=== PATIENT | female | born 1955 | race Caucasian/White ===

== ENCOUNTER → 2019-09-06 09:09 | Outpatient (CLI) | payer OTHER, SELFPAY ==
[2019-09-08 04:08] LABS: COVID19 Sendout Not Detected (Not Detected)
== END ==
PROVIDERS: PCP Family Medicine; Visit Provider Physician Assistant
DX: Z03.818 Encounter for observation for suspected exposure to other biological agents ruled out (principal)
CPT/HCPCS: 87635

== ENCOUNTER → 2021-06-19 10:22 | Outpatient (CLI) | payer OTHER, SELFPAY ==
[2021-06-19 11:12] LABS: COVID19 -Nasal RAPID Negative (Negative)
== END ==
PROVIDERS: PCP Family Medicine; Visit Provider Surgery
DX: Z01.812 Encounter for preprocedural laboratory examination (principal); Z20.822 Contact with and (suspected) exposure to COVID-19
CPT/HCPCS: 87635; C9803

== ENCOUNTER 2021-06-20 11:58 | Day surgery (SDC) | payer OTHER, SELFPAY ==
[2021-06-20 12:35] VITALS: BP 140/80; PULSE 84; RESP 16; TEMP 36.7; O2SAT 96; BMI 24.0
[2021-06-20] MEDS: LACTATED RINGERS 1,000 ML 42 ML IV (12:56)
--- NOTE | 2021-06-20 14:04 | PM.HP.1 ---
History of Present Illness History of Present Illness Date Patient Seen: 06/20/21 Time Patient Seen: 14:04 Chief complaint: SDC Narrative: Carmencita is a 66-year-old woman who is due for colonoscopy. Her last was 11 years ago and there were no polyps. 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 Family & Social History Social History: household members none Tobacco & Substance use: Tobacco type cigarettes Smoking Status Former smoker alcohol intake current alcohol intake frequency holiday/special occasion Substance Use Type marijuana Meds Home Medications and Allergies Home Medications Medication Instructions Recorded Confirmed Type citalopram 10 mg tablet 10 mg PO QDAY #0 tab 11/07/12 06/20/21 History fenofibrate 160 mg tablet 160 mg PO QDAY #0 tab 11/07/12 06/20/21 History lisinopril 20 mg tablet 20 mg PO QDAY #0 tab 11/07/12 06/20/21 History metformin 500 mg tablet,extended 500 mg PO QDAY #0 tab 11/07/12 06/20/21 History release 24 hr (Glucophage XR) simvastatin 40 mg tablet 80 mg PO Q DAY #0 11/07/12 06/20/21 History acyclovir 400 mg tablet 800 mg PO TID #0 02/17/17 06/20/21 History cyclobenzaprine 5 mg tablet 5 mg PO Q DAY PRN PRN #0 02/17/17 06/20/21 History estradiol (Estrace) 1 gm VAGINAL Q1-2D #0 02/17/17 06/20/21 History Allergies Allergy/AdvReac Type Severity Reaction Status Date / Time nickel [NICKEL] Allergy Unknown RASH Verified 06/20/21 12:48 Exam Vital Signs (past 8 hours): - 06/20/21 12:35 Temperature 98.0 F Pulse Rate 84 Respiratory Rate 16 Blood Pressure 140/80 Pulse Oximetry 96 Oxygen Delivery Method Room Air Const General: healthy appearing Resp Effort & Inspection: normal respiratory effort Assessment & Plan Assessment and plan (1) Colon cancer screening: Status: Acute Plan Risks and benefits of colonoscopy described. We will proceed with colonoscopy. COVID-19 COVID-19 status: Negative Result date/Date tested (Pos, Neg/Pending): 06/19/21 Time Spent With Patient Critical Care time: I spent a total of [] minutes of critical care time on this patient's care today; this time is exclusive of procedural time.
[2021-06-20] MEDS: fentaNYL 250 MCG/5 ML INJ IV (14:30)
[2021-06-20] MEDS: MIDAZOLAM 5 MG/5 ML VIAL IV (14:32)
--- NOTE | 2021-06-20 14:38 | PM.OP.COLON ---
Operative Date/Time/Diagnoses Date of procedure: 06/20/21 Time of procedure: 14:38 Pre-op diagnosis: Colon cancer screening Post-op diagnosis: same Procedure & Clinicians Study performed: Colonoscopy Same procedure as scheduled: Yes Surgeon: Alex William Procedure Notes SCOAP/Timeout: Done Procedure in detail: Procedure: The patient was brought to the endoscopy suite, placed in left lateral decubitus position. The patient was connected to monitoring devices. A time-out was performed. Sedation was administered. Once the patient was adequately sedated, a digital rectal exam was performed and was normal. The scope was then inserted and advanced to the cecum where the appendiceal orifice was identified and photographed. The scope was then slowly withdrawn over greater than 6 minutes. Mucosa was thoroughly inspected. There were a few scattered diverticula in the sigmoid colon. The scope was retroflexed in the rectum. No abnormalities were noted. The scope was straightened and removed. The patient was awakened and brought to recovery. Versed: 6 mg Fentanyl: 125 mcg EBL: 0 Findings: Scattered diverticula Scope withdrawal time: 7 Sedation minutes: 24 Findings: divertiulosis Post-procedure Recommendations: Colonoscopy in 10 years Disposition: PACU
[2021-06-20 14:39] VITALS: BP 92/51; PULSE 74; RESP 20; TEMP 36.5; O2SAT 94
[2021-06-20 14:49] VITALS: BP 114/61; PULSE 76; RESP 11; O2SAT 95
[2021-06-20 14:56] VITALS: BP 113/60; PULSE 88; RESP 13; TEMP 36.6; O2SAT 94
== END 2021-06-20 15:16 | disposition home or self-care (01) ==
PROVIDERS: PCP Family Medicine; Referring Provider Surgery; Visit Provider Surgery
PROC: 0DJD8ZZ Inspection of Lower Intestinal Tract, Via Natural or Artificial Opening Endoscopic (ICD-10-PCS; CPT 45378; principal; 2021-06-20 13:45)
DX: Z12.11 Encounter for screening for malignant neoplasm of colon (principal); K57.30 Diverticulosis of large intestine without perforation or abscess without bleeding
CPT/HCPCS: G0121; 99152; 99153; J2250; J3010

== ENCOUNTER 2022-11-04 20:25 | Emergency (ER) | payer OTHER, SELFPAY ==
[2022-11-04] VITALS (9 sets, daily range): BP systolic 133–178; BP diastolic 75–91; PULSE 62–84; RESP 16–27; TEMP 36.3; O2SAT 96–99; BMI 22.6
[2022-11-04 21:42] LABS: Hematocrit 32.2 % (36-46); Hemoglobin 11.1 g/dL (12.0-16.0); Mean Corpuscular HGB Conc 34.5 % (30-36); Mean Corpuscular Hemoglobin 30.9 PG (26-34); Mean Corpuscular Volume 89.7 fL (80-100); Platelet Count 229 X10^3/uL (150-400); Red Blood Cell Count 3.59 X10^6/uL (4.0-5.2); Red Cell Distribution Width 12.5 % (11.6-14.8)
[2022-11-04 21:47] LABS: BUN Creatinine Ratio 20.7 (6-22); Blood Urea Nitrogen 12 mg/dL (7-17); Carbon Dioxide 23 mmol/L (22-32); Chloride 107 mmol/L (98-107); Estimated Glomerular Filt Rate > 60 mL/min (>60); Glucose 95 mg/dL (80-110); HEMOLYSIS < 15 (0-50); Potassium 4.2 mmol/L (3.4-5.1); Sodium 139 mmol/L (137-145)
[2022-11-04 21:51] LABS: Add Manual Diff / Slide Review YES; White Blood Cell Count 1.6 X10^3/uL (4.5-11.0)
--- NOTE | 2022-11-04 21:53 | ED.DIZZY ---
HPI - Dizziness General Chief Complaint: Dizziness Stated Complaint: thinks may be dehydrated Time Seen by Provider: 11/04/22 21:39 Source: patient Mode of arrival: Ambulatory History of Present Illness HPI Narrative: Patient is a 67-year-old female with history of bladder cancer presenting today with dizziness lightheadedness and possible dehydration. She had a cystoscopy done on October 27 with [facility] she reports that they uncertain chemo for a papillary tumor at the dome it was then drained out. She had a catheter in for a couple of days she remove the catheter herself. She reports having fever at home of 101 once 4 days ago. She is been taking Tylenol fairly regularly she reports fever last night of at least 100's currently afebrile here. She thought she was doing okay. She denies any painful frequent urination no abdominal pain chest pain cough or shortness of breath. She real dizzy today thought maybe she was dehydrated was encouraged to come to the ED for evaluation. Related Data Home Medications Medication Instructions Recorded Confirmed citalopram 10 mg tablet 10 mg PO QDAY #0 tabs 11/07/12 06/20/21 fenofibrate 160 mg tablet 160 mg PO QDAY #0 tabs 11/07/12 06/20/21 lisinopril 20 mg tablet 20 mg PO QDAY #0 tabs 11/07/12 06/20/21 metformin 500 mg tablet,extended 500 mg PO QDAY #0 tabs 11/07/12 06/20/21 release 24 hr (Glucophage XR) simvastatin 40 mg tablet 80 mg PO Q DAY ##0 11/07/12 06/20/21 acyclovir 400 mg tablet 800 mg PO TID ##0 02/17/17 06/20/21 cyclobenzaprine 5 mg tablet 5 mg PO Q DAY PRN PRN Cold Sores 02/17/17 06/20/21 ##0 estradiol 0.01% (0.1 mg/gram) 1 gm vaginal Q1-2D ##0 02/17/17 06/20/21 vaginal cream (Estrace) Previous Rx's Medication Instructions Recorded ciprofloxacin HCl 500 mg tablet 500 mg PO BID #20 tabs 11/05/22 (Cipro) Allergies Allergy/AdvReac Type Severity Reaction Status Date / Time nickel [NICKEL] Allergy Unknown RASH Verified 06/20/21 12:48 Review of Systems Review of Systems ROS Unobtainable: All systems reviewed & are unremarkable except as noted in HPI and below Patient History Surgical History 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 HEENT: Head atraumatic,EOMI, pupils reactive, face symmetric, moist mucous membranes CARDIOVASCULAR: Regular rate and rhythm without murmurs, rubs or gallops. RESPIRATORY: Breath sounds equal bilaterally, no wheezes rales or rhonchi. ABDOMEN: Soft, nontender. Normoactive bowel sounds all 4 quadrants. No guarding or rebound. EXTREMITIES: Normal range of motion, no clubbing or edema. Neurovascularly intact. Left arm amputation NEUROLOGICAL: Alert and oriented x4.Normal gait and speech. SKIN: Warm, dry, no laceration, no petechiae, no rashes or lesions. Course Orders Ordered: ED Orders 11/04/22 21:02 EKG-12 Lead Stat 11/04/22 21:25 Basic Metabolic Panel Stat Complete Blood Count AUTO DIFF Stat Lactate (Lactic Acid) Stat Procalcitonin Stat Troponin I Stat 11/04/22 21:36 Urinalysis Screen (Dip Only) Stat 11/04/22 22:53 Blood Culture Stat 11/04/22 23:49 Chest [XR chest 1V] Stat 11/05/22 00:36 Covid-19 + FLU A/B + RSV - PCR Stat Discontinued Medications Sodium Chloride (Normal Saline 0.9%) 1,000 mls @ 1,000 mls/hr IV BOLUS ONE Stop: 11/04/22 23:26 Last Infusion: 11/05/22 00:29 Dose: 0 mls/hr Documented By: Admin: 11/04/22 22:44 Dose: 1,000 mls/hr Documented By: BAM Cefepime HCl 2 gm/ Sodium (Chloride) 100 mls @ 200 mls/hr IV NOW ONE Stop: 11/04/22 23:49 Last Infusion: 11/05/22 01:04 Dose: 0 mls/hr Documented By: Admin: 11/05/22 00:28 Dose: 200 mls/hr Documented By: WENDY Vancomycin HCl (Vancomycin) 750 mg in 150 mls @ 150 mls/hr IV NOW ONE Stop: 11/05/22 00:48 Vancomycin HCl (Vancomycin) 1,000 mg in 200 mls @ 200 mls/hr IV NOW ONE Stop: 11/05/22 01:29 Last Infusion: 11/05/22 02:18 Dose: 0 mls/hr Documented By: Admin: 11/05/22 01:04 Dose: 200 mls/hr Documented By: WENDY Vital Signs Vital signs: Vital Signs - 8 hr 11/04/22 20:30 11/04/22 21:15 11/04/22 21:17 Temperature 97.3 F L Pulse Rate 68 65 Respiratory Rate 16 27 H Blood Pressure 169/81 H 178/91 H Pulse Oximetry 99 Oxygen Delivery Method Room Air 11/04/22 21:17 11/04/22 21:35 11/04/22 22:00 Temperature Pulse Rate 66 84 65 Respiratory Rate 20 18 Blood Pressure Pulse Oximetry 98 96 99 Oxygen Delivery Method 11/04/22 22:30 11/04/22 22:35 11/04/22 22:35 Temperature Pulse Rate 65 66 Respiratory Rate 24 20 Blood Pressure 150/75 H Pulse Oximetry 97 98 Oxygen Delivery Method 11/04/22 23:00 11/04/22 23:00 11/04/22 23:30 Temperature Pulse Rate 62 Respiratory Rate 24 Blood Pressure 142/81 H 133/77 Pulse Oximetry 98 Oxygen Delivery Method 11/04/22 23:30 11/05/22 00:00 11/05/22 00:00 Temperature Pulse Rate 66 69 Respiratory Rate 25 H 22 Blood Pressure 145/88 H Pulse Oximetry 98 98 Oxygen Delivery Method 11/05/22 00:30 11/05/22 00:31 11/05/22 00:31 Temperature Pulse Rate 74 73 Respiratory Rate 35 H 39 H Blood Pressure 156/69 H Pulse Oximetry 98 97 Oxygen Delivery Method 11/05/22 01:00 11/05/22 01:00 11/05/22 01:30 Temperature Pulse Rate 65 Respiratory Rate 21 Blood Pressure 151/78 H 168/80 H Pulse Oximetry 97 Oxygen Delivery Method 11/05/22 01:30 11/05/22 02:00 11/05/22 02:01 Temperature 98.1 F Pulse Rate 66 67 Respiratory Rate 18 24 Blood Pressure 142/67 H Pulse Oximetry 97 97 Oxygen Delivery Method MDM - Dizziness Lab Data 11/04/22 21:25 11/04/22 21:25 Labs: Lab Results 11/04/22 11/04/22 11/04/22 Range/Units 21:25 21:25 21:25 WBC 1.6 L* (4.5-11.0) X10^3/uL RBC 3.59 L (4.0-5.2) X10^6/uL Hgb 11.1 L (12.0-16.0) g/dL Hct 32.2 L (36-46) % MCV 89.7 (80-100) fL MCH 30.9 (26-34) PG MCHC 34.5 (30-36) % RDW 12.5 (11.6-14.8) % Plt Count 229 (150-400) X10^3/uL Neut % (Auto) Not Reportable Lymph % (Auto) Not Reportable [place] % (Auto) Not Reportable Eos % (Auto) Not Reportable Baso % (Auto) Not Reportable Lymph # (Auto) Not Reportable [place] # (Auto) Not Reportable Baso # (Auto) Not Reportable Total Counted 50 Seg Neutrophils % 26.0 L (38-70) % Lymphocytes % (Manual) 66.0 H (25-45) % Monocytes % (Manual) 4.0 (2-11) % Eosinophils % (Manual) 2.0 (2-4) % Basophils % (Manual) 2.0 H (0-1) % Neutrophils # (Manual) 416 L (1581-0121) /uL RBC Morphology Normal morphology Sodium 139 (137-145) mmol/L Potassium 4.2 (3.4-5.1) mmol/L Chloride 107 (98-107) mmol/L Carbon Dioxide 23 (22-32) mmol/L BUN 12 (7-17) mg/dL Creatinine 0.58 (0.52-1.04) mg/dL Estimated GFR > 60 (>60) mL/min BUN/Creatinine Ratio 20.7 (6-22) Glucose 95 (80-110) mg/dL Lactate 0.7 (0.7-2.1) mmol/L Calcium 9.0 (8.4-10.2) mg/dL Troponin I < 0.012 (0.01-0.034) ng/mL Procalcitonin (<0.5) ng/mL Urine Color Urine Appearance Urine pH (4.5-8.0) Ur Specific [place] (1.000-1.035) Urine Protein (Negative) Urine Glucose (UA) (Negative) g/dL Urine Ketones (NEGATIVE) Urine Occult Blood (Negative) Urine Nitrate (Negative) Urine Bilirubin (NEGATIVE) Urine Urobilinogen (0.2) E.U./dL Ur Leukocyte Esterase (NEGATIVE) SARS-CoV-2 (PCR) (Negative) Influenza A (RT-PCR) (NEGATIVE) Influenza B (RT-PCR) (NEGATIVE) RSV (PCR) (Negative) 11/04/22 11/04/22 11/05/22 Range/Units 21:25 21:36 00:36 WBC (4.5-11.0) X10^3/uL RBC (4.0-5.2) X10^6/uL Hgb (12.0-16.0) g/dL Hct (36-46) % MCV (80-100) fL MCH (26-34) PG MCHC (30-36) % RDW (11.6-14.8) % Plt Count (150-400) X10^3/uL Neut % (Auto) Lymph % (Auto) [place] % (Auto) Eos % (Auto) Baso % (Auto) Lymph # (Auto) [place] # (Auto) Baso # (Auto) Total Counted Seg Neutrophils % (38-70) % Lymphocytes % (Manual) (25-45) % Monocytes % (Manual) (2-11) % Eosinophils % (Manual) (2-4) % Basophils % (Manual) (0-1) % Neutrophils # (Manual) (7924-1538) /uL RBC Morphology Sodium (137-145) mmol/L Potassium (3.4-5.1) mmol/L Chloride (98-107) mmol/L Carbon Dioxide (22-32) mmol/L BUN (7-17) mg/dL Creatinine (0.52-1.04) mg/dL Estimated GFR (>60) mL/min BUN/Creatinine Ratio (6-22) Glucose (80-110) mg/dL Lactate (0.7-2.1) mmol/L Calcium (8.4-10.2) mg/dL Troponin I (0.01-0.034) ng/mL Procalcitonin 0.05 (<0.5) ng/mL Urine Color Yellow Urine Appearance Clear Urine pH 6.5 (4.5-8.0) Ur Specific [place] <=1.005 (1.000-1.035) Urine Protein Negative (Negative) Urine Glucose (UA) Negative (Negative) g/dL Urine Ketones Negative (NEGATIVE) Urine Occult Blood Trace-intact (Negative) Urine Nitrate Negative (Negative) Urine Bilirubin Negative (NEGATIVE) Urine Urobilinogen 0.2 (0.2) E.U./dL Ur Leukocyte Esterase Negative (NEGATIVE) SARS-CoV-2 (PCR) Negative (Negative) Influenza A (RT-PCR) Flu a negative (NEGATIVE) Influenza B (RT-PCR) Flu b negative (NEGATIVE) RSV (PCR) Negative (Negative) Urine Dip Bedside Urine Glucose Negative Bedside Urine Bilirubin - Negative Bedside Urine Ketone - Negative Urine Specific [place] 1.005 Bedside Urine Occult Blood +/- Bedside Urine pH 6 Bedside Urine Protein - Negative Bedside Urine Urobilinogen - Negative Bedside Urine Nitrite - Negative Bedside Urine Leukocytes - Negative Esterase [facility] Narrative Medical decision making narrative: Patient 67-year-old female history of malignant neoplasm of the urinary bladder presenting today with dizziness lightheadedness reported fevers at home. She is afebrile here. Blood work does show neutropenia with WBC of 1.6 ANC 416. Records from [facility] have been received and reviewed last blood work was in July 23 where she had WBC of 4.2. Concern for neutropenic fever, unknown source. Urinalysis viral panel and chest x-ray are negative. She is a normal lactate normal procalcitonin. She is overall feeling better after 1 L of fluid. sHe is empirically given cefepime and vancomycin. Blood cultures pending. 5425-Dr. Billingsley urology [facility] updated on patient's symptoms test results reports that WBC count is concerning no need for transfer for any sort of urology procedure. Agrees with monitoring overnight IV antibiotics. Dr. Costa, hospitalist updated patient's symptoms test results urology recommendations. At this time she does not meet sepsis criteria she is afebrile here she is neutropenic but at this time no source. Reports that she does not meet admission criteria recommends outpatient follow-up. Patient does not have fever here she reports fever at she started Cipro 250mg BID per urology today she is only taken 1 dose. Not able to admit here she overall appears well, vitals are stable she remained afebrile for 6 hours in the ED. discussed with her strict return precautions she is given copies of her blood work and reports that she needs repeat blood work this week. We will call her if blood cultures are positive. Discharge Plan Departure Patient Disposition: Home Clinical Impression: Neutropenia Instructions: Neutropenia, Neutropenic Fever Activity Restrictions/Additional Instructions: *You have been diagnosed with neutropenia (WBC 1.6) *What to do: At this time no obvious source of infection found. Continue to monitor for fever. You will need repeat CBC this week either with Urology or your PCP. *Continue to take medications as directed Cipro 500 mg twice a day for 10 days --> [facility] *Follow up with your primary care provider in 2-3 days or call [phone] *Return to ER if you should have fever greater than 100.4, chest pain shortness of breath [or] any new, worsening or concerning symptoms Prescriptions: New ciprofloxacin HCl [Cipro] 500 mg tablet 500 mg PO BID Qty: 20 0RF No Action metformin [Glucophage XR] 500 MG tablet extended release 24 hr 500 mg PO QDAY Qty: 0 lisinopril 20 MG tablet 20 mg PO QDAY Qty: 0 simvastatin 40 MG tablet 80 mg PO Q DAY Qty: 0 citalopram 10 MG tablet 10 mg PO QDAY Qty: 0 fenofibrate 160 MG tablet 160 mg PO QDAY Qty: 0 acyclovir 400 MG tablet 800 mg PO TID Qty: 0 estradiol [Estrace] 0.01 % cream 1 gm Vaginal Q1-2D Qty: 0 cyclobenzaprine 5 MG tablet 5 mg PO Q DAY PRN PRN (Reason: Cold Sores) Qty: 0 Referrals: Geoffrey Fabian DO [Primary Care Provider] - Stand Alone Forms: Patient Portal/API
[2022-11-04 22:00] LABS: Troponin I < 0.012 ng/mL (0.01-0.034)
[2022-11-04 22:15] LABS: Appearance Urine UA CLEAR; Bilirubin Urine UA NEGATIVE (NEGATIVE); Color Urine UA YELLOW; Glucose Urine UA NEGATIVE (Negative); Ketones Urine UA NEGATIVE (NEGATIVE); Leukocyte Esterase Urine UA NEGATIVE (NEGATIVE); Nitrite Urine UA NEGATIVE (Negative); Occult Blood Urine UA TRACE-INTACT (Negative); Protein Urine UA NEGATIVE (Negative); Specific Gravity Urine UA <=1.005 (1.000-1.035); Urobilinogen Urine UA 0.2 E.U./dL (0.2)
[2022-11-04 22:18] LABS: pH Urine UA 6.5 (4.5-8.0)
[2022-11-04] MEDS: SODIUM CHLORIDE 0.9% 1,000 ML 1000 ML IV (22:44)
[2022-11-04 22:58] LABS: Neutrophils Absolute Manual 416 /uL (3000-5900); RBC Morphology Normal Morphology; Total Cells Counted 50
[2022-11-04 23:13] LABS: Lactate (Lactic Acid) 0.7 mmol/L (0.7-2.1)
[2022-11-04 23:32] LABS: Procalcitonin 0.05 ng/mL (<0.5)
--- NOTE | 2022-11-04 23:49 | DI.RAD.S_ITS ---
PROCEDURE: XR CHEST 1V INDICATIONS: Neutropenic fever TECHNIQUE: One view of the chest was acquired. COMPARISON: None. FINDINGS: Surgical changes and devices: None. Lungs and pleura: Lungs are clear. No pleural effusions or pneumothorax. Mediastinum: Mediastinal contours appear normal. Heart size is normal. Bones and chest wall: No suspicious bony lesions. Overlying soft tissues appear unremarkable. IMPRESSION: Portable chest within normal limits for age. Dictated by: Daljit Gan M.D. on 11/05/2022 at 0:15 Approved by: Daljit Gan M.D. on 11/05/2022 at 0:15
[2022-11-05] VITALS (7 sets, daily range): BP systolic 142–168; BP diastolic 67–88; PULSE 65–74; RESP 18–39; TEMP 36.7; O2SAT 97–98
[2022-11-05] MEDS: CEFEPIME 2 GM in SODIUM CHLORIDE 0.9% 100 ML IV (00:28)
[2022-11-05] MEDS: VANCOMYCIN 1,000 MG/200 ML PIGGYBACK 200 MG IV (01:04)
[2022-11-05 01:22] LABS: Influenza A - CEPHEID Flu A NEGATIVE (NEGATIVE); Influenza B - CEPHEID Flu B NEGATIVE (NEGATIVE); Respiratory Syncytial Virus Negative (Negative)
[2022-11-05 01:23] LABS: COVID-19 CEPHEID 4-PLEX PCR Negative (Negative)
== END 2022-11-05 02:22 | disposition home or self-care (01) ==
PROVIDERS: Emergency Provider Emergency Medicine; PCP Family Medicine
DX: D70.9 Neutropenia, unspecified (principal); R50.9 Fever, unspecified; Z20.822 Contact with and (suspected) exposure to COVID-19
CPT/HCPCS: 0241U; 36415; 71045; 80048; 81003; 83605; 84145; 84484; 85007; 85025; 87040; 93005; 96361; 96365; 96367; 99284; J0692